=== PATIENT | male | born 1945 | race Caucasian/White ===

== ENCOUNTER 2022-03-01 11:00 | Outpatient (RCR) | payer MEDICARE, BC, SELFPAY ==
--- NOTE | 2022-01-24 19:14 | OT.OPOE ---
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 Medical/Functional History Medical History Reviewed Yes Prior Level of Function/Mobility Pt ambulatory at high level, walks out doors for 45 min 2-3 days/week depending on ice. Plays cards at [address]. Lives alone in town home. Has lived in [place] for the past >40 years. Daughter and 2 [id number] and 14 y/o live in the area. Social History Employment Status Retired Current Occupation Was in [employer], reading, used to play [employer] Ortho Subjective Subjective Subjective Elder Murphy is a 77 y/o male who fell backward while grasping tightly on bench that stayed in place as he attempted moving it in the garage with immediate shock of pain running up to shoulder and down forearm in late October of 2021. Since then he has been having pain, stiffness and poor stamina for supporting his books, holding cards, painful to bump it/roll in bed. Pain Assessment Pain Present Pain Present Pain Reported Location R Elbow Description Tightness,Dull, Achy,With Movement,Heaviness Intensity 4 Goniometric Comments Goniometric Comments Goniometric Comments Pt is L hand dominant. R Wrist EX to 50 of 70, WR FL to 75 of 80, Supination to lacking 30 degrees. 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 Sh AROM WNL R side better than L. MMT B EL FL, EX 5/5. WR EX 4+/ 5 4/10 pain at ECRL ECRB positions (radiates to biceps insert and medial epicondyle, ECU no pain. WR FL 5/5. 4-- /5 MMT of supination. 5/5 pronation Gripping is 71# R pos 1 (with pressure/grabbing sensation at CET 3/10) and 74# L. Pos 2 is 84# R, no pain and 82# L. Gross pinch is 20 # R, no pain. 22# L 3 pt pinch is 9# R ( limited OA changes at TH IP, now lacking his IP hyper extension by 50+ degrees as compared to L side. Osteophytes at IF R making for digit rotation defomrinty. OT Objective Data Hand Hand Dominance Left Upper Extremity Special Tests Elbow Cozens Test Negative Left,Positive Right Wrist Durkan's Test Negative Left,Negative Right Upper Extremity Special Tests Comments Comments Noteworthy loss of supination strength in R forearm OT Problems Problems Problems Decreased Strength,Decreased Range of Motion,Decreased Fine Motor,Sensory Sensitivity, Lifting,Gripping,Pinching Other Problems Opening Containers,Fasteners Patient Potential Excellent Assessment Assessment Assessment Given Elder's ongoing pain in R elbow and ?difficulty with edema ROM and strength loss of R hand/wrist/elbow , he would benefit from skilled OT to address these areas. Occupational Therapy Treatment Plan - OP Goals Goals In 8 weeks, pt will demonstrate:? 1) Decreased pn to <2/10 80% of the time with sustained gripping of cards, carrying groceries, and reading books. 2) I HEP for stretching, gradual strengthening and self mgmt strategies. 3) ??Pt to be fit with functional bracing (for CMC, elbow counter pressure) and use adaptive strategies to protect joint integrity to support less pain with ADL. Target Date 04/25/22 Progress set Treatment Plan Treatment Plan Evaluation,Edema Control,Joint Mobilization,Manual Therapy, Paraffin Bath,Splinting, Ultrasound,Therapeutic Exercise,Self-Care/Home Management,Education Expected Frequency 1-2x Week Expected Duration 8-10 Weeks Comment Summary Pt to get counter pressure cuff via [employer], improved his comfort with gripping, to wea with most daily tasks for next 2 weeks and wear tetragrip size E for nights. Certification Certification I Certify That: Therapy Services Provided, Therapy Plan Established, Therapy Plan Reviewed
--- NOTE | 2022-03-01 14:15 | OT.OPODN ---
OT Outpatient Ortho Daily Note OT Outpatient Ortho Daily Note Start: 01/24/22 18:41 Freq: Status: Active Protocol: Document 03/01/22 14:03 TRAY (Rec: 03/01/22 14:14 LCN [id number]) E-signed By Nahed Anaya, OTR/L, CLT Type of Note Type of Note Type of Note Daily Note,Discharge Note,Note To MD Visit Number 7 Comments Pt had a no show 01/28, was not on his list/calendar. Insurance Information Insurance Information Medicare B Outpatient History/Precautions Current Condition/Medical Diagnosis Referring Provider Rex Haskins Treatment Diagnosis R elbow pain at ECRB, ECRL Date of Onset 10/22/21 Other Precautions ( sensitive to adhesives, no taping). 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 Medical/Functional History Medical History Reviewed Yes Prior Level of Function/Mobility Pt ambulatory at high level, walks out doors for 45 min 2-3 days/week depending on ice. Plays cards [place] [address]. Lives alone in town home. Has lived in [place] for the past >40 years. Daughter and 2 [id number] and 14 y/o live in the area. Social History Employment Status Retired Current Occupation Was in [employer], reading, used to play piano Ortho Subjective Subjective Subjective Pt can still get a sore lateral epicondyle 1-2 times per week from combined housing manager/ twist motions, exercises are not bothering him and he is feeling like his home program will keep his progress going. Can do some of his own self mobilizations at home now. Elder Murphy is a 77 y/o male who fell backward while grasping tightly on bench that stayed in place as he attempted moving it in the garage with immediate shock of pain running up to shoulder and down forearm in late October of 2021. Since then he has been having pain, stiffness and poor stamina for supporting his books, holding cards, painful to bump it/roll in bed. Pain Assessment Pain Present Pain Present Pain Reported Location R Elbow Description Pressure,Dull, Achy,With Movement Intensity 2 OT OP Daily Ortho Note/Assessment Self-Care/Home Management Self-Care/Home Management Minutes ( 0 minutes) Self-Care/Home Management Comments . Therapeutic Exercise Therapeutic Exercise Minutes (minutes) 10 Therapeutic Exercise Comments Upgraded HEP to using orange band with eccentric motions for WR FL, WR EX and RD planes , well tolerated x 10 reps each. Encouraged to start with 1 set and incr to 2 set 1x/ day per tolerance.?? Splinting Splinting Comments to get counter pressure cuff via [employer], improved his comfort with gripping, to wea with most daily tasks for next 2 weeks and wear tetragrip size E for nights. Ultrasound Ultrasound Frequency & Mode 1 MHz Continuous Manual Therapy Manual Therapy Minutes (minutes) 22 Manual Therapy Comments OTR continues IASTM with Graston #6 to mobilize soft tissue surrounding joint capsule,?ligament structures and muscle groups to support freedom of movement and healing of structures at R lateral epicondyle, CET, triceps and biceps insert. Cont C clamp hold of wrist flexor and extensor muscle bulk pin/stretch while gliding in ext/flexion/circular patterns. Goniometric Comments Goniometric Comments Goniometric Comments 03/01/22--IMproved housing manager in pos 1 to 65#, 2/10 pressure at extensor muscle bulk at full effort. Pos 2-- No pain, 75#. Gross pinch is 20# R22# L 3 pt pinch is 19# R (much improved from eval 9#) and 16# L. -- Pos 2 78# no pain. 02/08/22-- Reduced pn to 3/10 with gripping pos 1, 60# at end of session. 01/31/22--Pos 1 housing manager is 62#, 6 -7/10 pn , reduces to 4-5/1- pn with counterpressure cuff placed/ECRB. Pos 2 is 72# with 3/10 tenderness. Eval 01/24/22--Pt is L hand dominant. R Wrist EX to 50 of 70, WR FL to 75 of 80, Supination to lacking 30 degrees. 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 Sh AROM WNL R side better than L. MMT B EL FL, EX 5/5. WR EX 4+/ 5 4/10 pain at ECRL ECRB positions (radiates to biceps insert and medial epicondyle, ECU no pain. WR FL 5/5. 4-- /5 MMT of supination. 5/5 pronation Gripping is 71# R pos 1 (with pressure/grabbing sensation at CET 3/10) and 74# L. Pos 2 is 84# R, no pain and 82# L. Gross pinch is 20 # R, no pain. 22# L 3 pt pinch is 9# R ( limited OA changes at TH IP, now lacking his IP hyper extension by 50+ degrees as compared to L side. Osteophytes at IF R making for digit rotation defomrinty. OT Objective Data Hand Hand Dominance Left Upper Extremity Special Tests Elbow Cozens Test Negative Left,Positive Right Wrist Durkan's Test Negative Left,Negative Right Upper Extremity Special Tests Comments Comments Noteworthy loss of supination strength in R forearm OT Problems Problems Problems Decreased Strength,Decreased Range of Motion,Decreased Fine Motor,Sensory Sensitivity, Lifting,Gripping,Pinching Other Problems Opening Containers,Fasteners Patient Potential Excellent Assessment Assessment Assessment Pt continues to improve with minimal pain during gripping/ pinching. He feels like he can self manage the rest with his home program. Given Elder's ongoing pain in R elbow and ?difficulty with edema ROM and strength loss of R hand/wrist/elbow , he would benefit from skilled OT to address these areas. Occupational Therapy Treatment Plan - OP Potential Rehabilitation Potential Excellent Goals Goals In 8 weeks, pt will demonstrate:? 1) Decreased pn to <2/10 80% of the time with sustained gripping of cards, carrying groceries, and reading books. 2) I HEP for stretching, gradual strengthening and self mgmt strategies. 3) ??Pt to be fit with functional bracing (for CMC, elbow counter pressure) and use adaptive strategies to protect joint integrity to support less pain with ADL. Target Date 04/25/22 Progress met Treatment Plan Treatment Plan Evaluation,Edema Control,Joint Mobilization,Manual Therapy, Paraffin Bath,Splinting, Ultrasound,Therapeutic Exercise,Self-Care/Home Management,Education Expected Frequency 1-2x Week Expected Duration 8-10 Weeks Comment Summary Cont US, IASTM, add concentric loading wtih band next session. Trial of heat helpful ? teach wrist and RALPH stretches, kinesiotape trial. OT Treatment Minutes Treatment Minutes Untimed Treatment Minutes 0 Timed Treatment Minutes 32 Total Treatment Minutes 32 Occupational Therapy Billing Units Billing Units Manual Therapy 1 Therapeutic Exercise 1 Ultrasound 0 Certification Certification I Certify That: Therapy Services Provided, Therapy Plan Established, Therapy Plan Reviewed Discharge Note Discharge Note Discharge Summary Pt can still get a sore lateral epicondyle 1-2 times per week from combined housing manager/ twist motions, exercises are not bothering him and he is feeling like his home program will keep his progress going. Can do some of his own self mobilizations at home now. After 7 visits of OT, pt demonstrates:? 1) Decreased pn to <2/10 80% of the time with sustained gripping of cards, carrying groceries, and reading books. (GOAL MET) 2) I HEP for stretching, gradual strengthening and self mgmt strategies. (GOAL MET. Using medium strength band/ eccentric combined planes x 10 reps each) 3) ??Pt to be fit with functional bracing (for CMC, elbow counter pressure) and use adaptive strategies to protect joint integrity to support less pain with ADL. ( GOAL MET, uses counterpressure cuff for heavier lifting, gripping tasks) Date of First Visit for Therapy 01/24/22 Date of Last Visit for Therapy 03/01/22 Initial Primary Functional Limitations/ Elder Murphy is a 77 y/o male Concerns who fell backward while grasping tightly on bench that stayed in place as he attempted moving it in the garage with immediate shock of pain running up to shoulder and down forearm in late October of 2021. Since then he has been having pain, stiffness and poor stamina for supporting his books, holding cards, painful to bump it/roll in bed. Initial Pain Level 4 Pain Level at Discharge 2 Interventions Provided During Treatment Ice/Cold/Vasopneumatic,Joint Mobilization,Manual Therapy, Therapeutic Exercise, Ultrasound Recommendations/Reason for Discharge Met All Therapy Goals,Progress Cont w/HEP Discharge Instructions Thanks so much for this thoughtful referral! Nahed Anaya, OTR/l CLT
== END 2022-10-20 23:59 | disposition home or self-care (01) ==
PROVIDERS: PCP Family Medicine; Visit Provider Orthopaedic Surgery
DX: M19.041 Primary osteoarthritis, right hand (principal); Z51.89 Encounter for other specified aftercare
CPT/HCPCS: 97035; 97110; 97140; 97165; X5282

== ENCOUNTER 2023-05-30 06:52 | Day surgery (SDC) | payer MEDICARE, BC, SELFPAY ==
[2023-05-30] VITALS (12 sets, daily range): BP systolic 140–196; BP diastolic 73–91; PULSE 65–71; RESP 11–16; TEMP 36.2–36.6; O2SAT 94–97; BMI 22.6
[2023-05-30] MEDS: SODIUM CHLORIDE 0.9 % (FLUSH) 10 ML SYRINGE IVF (08:50)
[2023-05-30] MEDS: CEFAZOLIN 2 GM INJ IVP (08:50)
[2023-05-30] MEDS: BUPIVACAINE 0.5% 30 ML 5 ML INJECTION ×2 (09:28→09:52)
[2023-05-30] MEDS: lidocaine HCL 2 % MULTIDOSE 20 ML VIAL 5 ML INJECTION ×2 (09:28→09:52)
--- NOTE | 2023-05-30 09:55 | PM.ORPRC ---
Procedure Note Date of procedure: 05/30/23 Procedure: Preop diagnosis: Left hand middle finger mucous cyst Postop diagnosis: Left hand middle finger mucous cyst Procedure: DIP joint debridement Anesthesia: Local Surgeon: Rex Haskins MD respiratory assistant: ISHAN Liao EBL: 5 mL Complications: None Specimens: None Drains: None Preop antibiotics: Ancef 2 g Indications: The patient has a history of left hand middle finger mucous cyst. Despite appropriate nonoperative management they continue to have symptoms. Operative intervention was recommended. The risks, benefits alternatives and expected outcomes were discussed in detail. These included but were not limited to: Infection, bleeding, injury to blood vessel or nerve, venous thromboembolism. All questions were answered to their satisfaction. The patient was placed supine on the operating room table. Local anesthesia was established with a digital block using 0.5% Marcaine without epinephrine and 2% lidocaine without epinephrine. The hand was prepped and draped in usual sterile fashion. The finger was exsanguinated, a quarter-inch Alice was used at the base of the finger as a tourniquet. A Deepa incision was made over the dorsum of the DIP joint. Tenotomy scissors were used for deep dissection down to the extensor mechanism. A full-thickness skin flap was elevated. The radial and ulnar side of the joint was entered with the 15 blade. The Lempert rongeur was used to debride the corner of the middle phalanx and base of the distal phalanx to decompress the joint on both sides of the extensor mechanism. The wound was irrigated with normal saline. It was closed with a 3-0 nylon in an interrupted fashion. A soft dressing was applied. The Alice was released. Sponge and needle counts were correct x 2. The patient tolerated the procedure well, there were no apparent complications. They were sent to same day surgery in satisfactory condition. Plan: Use of the hand as tolerates. Discontinue the intraoperative dressing on postoperative day 3 and may get the wound wet as tolerates. Follow up in the office in 2 weeks for a wound check and suture removal.
== END 2023-05-30 10:31 | disposition home or self-care (01) ==
PROVIDERS: PCP Family Medicine; Visit Provider Orthopaedic Surgery
PROC: 0HQQXZZ Repair Finger Nail, External Approach (ICD-10-PCS; CPT 11760; principal; 2023-05-30 09:15)
DX: M67.442 Ganglion, left hand (principal)
CPT/HCPCS: 26160; J0665; J0690